=== PATIENT | female | born 1970 | race Caucasian/White ===

== ENCOUNTER 2017-10-11 11:12 | Emergency (ER) | payer BC ==
--- NOTE | 2017-10-11 11:56 | EDM.PDOC ---
ED HPI GENERAL MEDICAL PROBLEM - General Chief Complaint: Neurological Problem Stated Complaint: VERTIGO Time Seen by Provider: 10/11/17 11:35 Source of Information: Reports: Patient, Family History Limitations: Reports: No Limitations - History of Present Illness INITIAL COMMENTS - FREE TEXT/NARRATIVE: 47-year-old female with a chronic history of recurrent vertigo is very concerned because the episodes are escalating, she is currently struggling with a 3 day episode of vertigo and its the second episode this month. No fevers or chills but she has nasal congestion and fullness. Denies vomiting. No chest pain or palpitations. No headache. Onset: Gradual (Over the past 3 days) Severity: Moderate Worsens with: Reports: Movement Associated Symptoms: Reports: Malaise, Nausea/Vomiting (Nausea but no vomiting) , Other (Nasal congestion). Denies: Headaches, Weakness - Related Data Allergies Allergy/AdvReac Type Severity Reaction Status Date / Time No Known Allergies Allergy Verified 10/11/17 11:26 Home Meds: Home Meds Levonorgestrel [Mirena] 10/11/17 [History] Past Medical History - Past Surgical History HEENT Surgical History: Reports: Eye Surgery GI Surgical History: Reports: Cholecystectomy Social & Family History - Tobacco Use Smoking Status *Q: Never Smoker ED ROS GENERAL - Review of Systems Review Of Systems: See Below Constitutional: Reports: Malaise. Denies: Fever, Chills HEENT: Reports: Ear Pain (She has a fullness in the left ear, no significant pain or difficulty hearing), Rhinitis, Sinus Problem Respiratory: Denies: Shortness of Breath, Cough Cardiovascular: Denies: Chest Pain, Palpitations GI/Abdominal: Reports: Nausea. Denies: Vomiting Skin: Reports: No Symptoms Neurological: Reports: Dizziness, Difficulty Walking ED EXAM, NEURO - Physical Exam Exam: See Below Exam Limited By: No Limitations General Appearance: Alert, No Apparent Distress, Anxious Eye Exam: Right Eye: Other (Slight nystagmus when looking to the right) Ears: Normal TMs Throat/Mouth: Normal Inspection Head Exam: Atraumatic Neck: Normal Inspection Respiratory/Chest: No Respiratory Distress, Lungs Clear Cardiovascular: Regular Rate, Rhythm. No: Extra Beats Neurological: Alert, No Motor/Sensory Deficits, Oriented x 3 Extremities: No: Pedal Edema Psychiatric: Anxious Skin Exam: Warm, Dry Course - Vital Signs Last Recorded V/S: Last Vital Signs Temp 95.4 F 10/11/17 11:33 Pulse 75 10/11/17 11:33 Resp 14 10/11/17 11:33 BP 149/84 H 10/11/17 11:33 Pulse Ox 98 10/11/17 11:33 - Orders/Labs/Meds Orders: Active Orders 24 hr Category Date Time Status Head wo Cont [CT] Stat Exams 10/11/17 12:22 Taken Labs: Laboratory Tests 10/11/17 10/11/17 Range/Units 12:22 12:22 WBC 8.8 (4.5-11.0) K/uL RBC 4.69 (3.30-5.50) M/uL Hgb 14.4 (12.0-15.0) g/dL Hct 42.0 (36.0-48.0) % MCV 90 (80-98) fL MCH 31 (27-31) pg MCHC 34 (32-36) % Plt Count 280 (150-400) K/uL Neut % (Auto) 82 H (36-66) % Lymph % (Auto) 11 L (24-44) % [place] % (Auto) 6 (2-6) % Eos % (Auto) 1 L (2-4) % Baso % (Auto) 1 (0-1) % Sodium 140 (140-148) mmol/L Potassium 4.3 (3.6-5.2) mmol/L Chloride 105 (100-108) mmol/L Carbon Dioxide 25 (21-32) mmol/L Anion Gap 10.2 (5.0-14.0) mmol/L BUN 13 (7-18) mg/dL Creatinine 0.7 (0.6-1.0) mg/dL Est Cr Clr Drug Dosing 95.01 mL/min Estimated GFR (MDRD) > 60 (>60) Glucose 103 (74-106) mg/dL Calcium 9.1 (8.5-10.1) mg/dL Total Bilirubin 0.5 (0.2-1.0) mg/dL AST 18 (15-37) U/L ALT 36 (12-78) U/L Alkaline Phosphatase 87 (46-116) U/L Total Protein 7.1 (6.4-8.2) g/dL Albumin 3.8 (3.4-5.0) g/dL Globulin 3.3 (2.3-3.5) g/dL Albumin/Globulin Ratio 1.2 (1.2-2.2) TSH, Ultra Sensitive 1.346 (0.358-3.740) uIU/mL Meds: Medications Discontinued Medications Generic Name Dose Route Start Last Admin Trade Name Jade PRN Reason Stop Dose Admin Acetaminophen 1,000 mg 10/11/17 12:22 10/11/17 12:25 Tylenol Extra Strength PO 10/11/17 12:23 1,000 mg ONETIME ONE Administration Meclizine HCl 25 mg 10/11/17 11:58 10/11/17 12:05 Antivert PO 10/11/17 11:59 25 mg ONETIME ONE Administration Ondansetron HCl 4 mg 10/11/17 11:57 10/11/17 12:04 Zofran Odt PO 10/11/17 11:58 4 mg ONETIME ONE Administration - Re-Assessments/Exams Free Text/Narrative Re-Assessment/Exam: 10/11/17 12:00 An Kendra maneuver was done focusing on the right side, it was unsuccessful in fact she felt a little worse. The right side was focused on as the patient had increased symptoms with hyperextending the neck looking to the right. 10/11/17 12:01 Patient was given 4 mg of sublingual Zofran and 25 mg of meclizine. 10/11/17 13:09 Patient continued to be symptomatic, a CBC, CMP, head CT and TSH were obtained. She was given 1000 mg of acetaminophen for a headache. The headache improved but her nausea persisted. CBC CMP and TSH were entirely normal. 10/11/17 13:[address] was also negative. Patient continued to feel nauseous and dizzy, she'll be placed on 60 mg of prednisone daily for 5 consecutive days and given meclizine. Also wrote a note to be off work for the next couple of days and she should recheck next week if not improving satisfactorily. Departure - Departure Time of Disposition: 13:58 Disposition: Home, Self-Care 01 Condition: Good Clinical Impression: Vertigo Eustachian tube dysfunction Qualifiers: Laterality: unspecified laterality Qualified Code(s): H69.80 - Other specified disorders of Eustachian tube, unspecified ear - Discharge Information Instructions: How to Perform the Kendra Maneuver, Benign Positional Vertigo Referrals: Doreen Kincaid PA [Primary Care Provider] - Forms: ED Department Discharge Care Plan Goals: Take 6 pills of prednisone with your first meal for 5 consecutive days. Get rest , fluids, and increase activity as tolerated. Meclizine as directed may help with dizziness or vertigo. Return anytime if worsening such as fever or worsening symptoms, otherwise recheck in 4-6 days with your primary provider if not improving satisfactorily. - My Orders Last 24 Hours: My Active Orders 10/11/17 12:22 Head wo Cont [CT] Stat - Assessment/Plan Last 24 Hours: My Active Orders 10/11/17 12:22 Head wo Cont [CT] Stat
[2017-10-11] MEDS ORDERED: Ondansetron 4 MG Tab.DIS PO ONE (11:57)
[2017-10-11] MEDS ORDERED: Meclizine 25 MG Tab PO ONE (11:58)
[2017-10-11] MEDS ORDERED: Acetaminophen 500 MG Tab PO ONE (12:22)
== END 2017-10-11 13:58 | disposition home or self-care (01) ==
LOC: JP.ED 11:12
DX: H69.80 Other specified disorders of Eustachian tube, unspecified ear (principal); R42 Dizziness and giddiness
CPT/HCPCS: 36415; 70450; 80053; 84443; 85025; 99284; A9270

== ENCOUNTER 2018-12-15 09:31 | Emergency (ER) | payer BC ==
[2018-12-15] MEDS ORDERED: Ondansetron 4 MG Tab.DIS PO ONE (11:01)
[2018-12-15] MEDS ORDERED: Ketorolac 60 MG/2 ML SDV IM ONE (11:01)
--- NOTE | 2018-12-15 11:05 | EDM.PDOC ---
ED HPI GENERAL MEDICAL PROBLEM - General Chief Complaint: Flank Pain Stated Complaint: RIGHT STOMACH PAIN Time Seen by Provider: 12/15/18 10:54 Source of Information: Reports: Patient, Family, RN Notes Reviewed History Limitations: Reports: No Limitations - History of Present Illness INITIAL COMMENTS - FREE TEXT/NARRATIVE: 48-year-old female presents emergency department today sudden onset right flank pain she states initially started in her abdomen and then radiated to her back she has had nausea and vomiting with this no fevers normal bowel movement still passing gas Right Abdomen Pain Score (Numeric/FACES): 6 - Related Data Allergies Allergy/AdvReac Type Severity Reaction Status Date / Time No Known Allergies Allergy Verified 12/15/18 10:47 Home Meds: Home Meds Levonorgestrel [Mirena] 1 ASDIRECTED 10/11/17 [History] Ketorolac [Toradol] 10 mg PO TID PRN #20 tab 12/15/18 [Rx] Tamsulosin [Flomax] 0.4 mg PO DAILY #10 cap.er 12/15/18 [Rx] Past Medical History - Past Surgical History Head Surgeries/Procedures: Reports: None HEENT Surgical History: Reports: Eye Surgery GI Surgical History: Reports: Cholecystectomy Dermatological Surgical History: Reports: None Social & Family History - Tobacco Use Smoking Status *Q: Never Smoker Second Hand Smoke Exposure: No - Caffeine Use Caffeine Use: Reports: Coffee, Soda, Tea - Recreational Drug Use Recreational Drug Use: No ED ROS GENERAL - Review of Systems Review Of Systems: See Below Constitutional: Reports: No Symptoms Respiratory: Reports: No Symptoms Cardiovascular: Reports: No Symptoms GI/Abdominal: Reports: Abdominal Pain, Flatus, Nausea, Vomiting : Reports: Flank Pain. Denies: Hematuria ED EXAM, GI/ABD - Physical Exam Exam: See Below Exam Limited By: No Limitations General Appearance: Alert, WD/WN, No Apparent Distress Respiratory/Chest: No Respiratory Distress, Lungs Clear, Normal Breath Sounds, No Accessory Muscle Use, Chest Non-Tender Cardiovascular: Regular Rate, Rhythm, No Murmur GI/Abdominal Exam: Soft, Tender (right flank) Course - Vital Signs Last Recorded V/S: Last Vital Signs Temp 95.6 F 12/15/18 09:42 Pulse 66 12/15/18 11:44 Resp 16 12/15/18 09:42 BP 151/85 H 12/15/18 11:44 Pulse Ox 97 12/15/18 11:44 - Orders/Labs/Meds Labs: Laboratory Tests 12/15/18 12/15/18 12/15/18 Range/Units 11:11 11:13 11:13 WBC 11.5 H (4.5-11.0) K/uL RBC 4.60 (3.30-5.50) M/uL Hgb 14.1 (12.0-15.0) g/dL Hct 41.6 (36.0-48.0) % MCV 90 (80-98) fL MCH 31 (27-31) pg MCHC 34 (32-36) % Plt Count 310 (150-400) K/uL Neut % (Auto) 86 H (36-66) % Lymph % (Auto) 8 L (24-44) % [place] % (Auto) 5 (2-6) % Eos % (Auto) 0 L (2-4) % Baso % (Auto) 0 (0-1) % Sodium 138 L (140-148) mmol/L Potassium 4.4 (3.6-5.2) mmol/L Chloride 102 (100-108) mmol/L Carbon Dioxide 27 (21-32) mmol/L Anion Gap 13.4 (5.0-14.0) mmol/L BUN 16 (7-18) mg/dL Creatinine 0.8 (0.6-1.0) mg/dL Est Cr Clr Drug Dosing 82.26 mL/min Estimated GFR (MDRD) > 60 (>60) Glucose 128 H (74-106) mg/dL Calcium 9.8 (8.5-10.1) mg/dL Total Bilirubin 0.3 (0.2-1.0) mg/dL AST 26 (15-37) U/L ALT 58 (12-78) U/L Alkaline Phosphatase 83 (46-116) U/L Total Protein 7.1 (6.4-8.2) g/dL Albumin 3.7 (3.4-5.0) g/dL Globulin 3.4 (2.3-3.5) g/dL Albumin/Globulin Ratio 1.1 L (1.2-2.2) Urine Color Yellow Urine Appearance Slightly cloudy Urine pH 7.0 (4.5-8.0) Ur Specific [place] 1.015 (1.008-1.030) Urine Protein Negative (NEGATIVE) mg/dL Urine Glucose (UA) Normal (NEGATIVE) mg/dL Urine Ketones Negative (NEGATIVE) mg/dL Urine Occult Blood Large (NEGATIVE) Urine Nitrite Negative (NEGATIVE) Urine Bilirubin Negative (NEGATIVE) Urine Urobilinogen Normal (NORMAL) mg/dL Ur Leukocyte Esterase Negative (NEGATIVE) Urine RBC 10-20 H (0-5) Urine WBC Not seen (0-5) Ur Epithelial Cells Few Amorphous Sediment Not seen Urine Bacteria Few Urine Mucus Rare Meds: Medications Discontinued Medications Generic Name Dose Route Start Last Admin Trade Name Freq PRN Reason Stop Dose Admin Ketorolac Tromethamine 60 mg 12/15/18 11:01 12/15/18 11:08 Toradol IM 12/15/18 11:02 60 mg ONETIME ONE Administration Ondansetron HCl 4 mg 12/15/18 11:01 12/15/18 11:08 Zofran Odt PO 12/15/18 11:02 4 mg ONETIME ONE Administration Departure - Departure Time of Disposition: 12:50 Disposition: Home, Self-Care 01 Condition: Fair Clinical Impression: Nephrolithiasis - Discharge Information Prescriptions: Ketorolac [Toradol] 10 mg PO TID PRN #20 tab PRN Reason: Pain Tamsulosin [Flomax] 0.4 mg PO DAILY #10 cap.er Instructions: Kidney Stones, [id number] Referrals: PCP,None [Primary Care Provider] - Forms: ED Department Discharge Additional Instructions: Use ketorolac as needed for pain control, take the Flomax to help pass the stone , use your Zofran for nausea and vomiting symptoms, follow-up with your primary care provider in the next 3-5 days if not better, he medications have been faxed to [facility] - Assessment/Plan Plan: Assessment Acuity = acute Site and laterality = right sided nephrolithiasis 4 mm Etiology = unknown etiology Manifestations = nausea, vomiting, flank pain Location of injury = Home Lab values = CBC, CMP unremarkable urinalysis reveals 10-[address] scan describes a stone above Plan Good relief with Toradol provided in the ED prescription written for ketorolac 10 mg by mouth 3 times a day when necessary total #20 also Flomax 0.4 mg once a day total #10 follow-up primary care in 3-5 days if not better This note was dictated using [employer] voice recognition software please call with any questions on syntax or grammar.
--- NOTE | 2018-12-15 12:34 | CRLCT ---
HISTORY: Right flank pain. TECHNIQUE: Noncontrast CT of the abdomen and pelvis. COMPARISON: No prior. FINDINGS: Prior cholecystectomy. There are a few low-density liver lesions within the medial segment of the left hepatic lobe which are incompletely characterized but could represent cysts. Area of superior splenic parenchymal volume loss likely related to remote insult. Adrenal glands normal. No focal pancreatic abnormality. - On the right, there is mild moderate hydronephrosis and hydroureter secondary to an approximately 4 mm calculus within the distal ureter. No other right-sided urinary calculus. No left-sided hydronephrosis. No left ureteral calculus. On the right, there is a fluid density lesion exophytic off the superior pole left kidney which measures approximately 1.5 cm in size, likely representing a cyst. - No small bowel obstruction. No appendicitis. Colonic diverticulosis without acute diverticulitis. IUD. No fluid collection or free air. No abdominal aortic aneurysm. No adenopathy. - Mild degenerative changes of the spine. No acute fractures. - There are a multiple pulmonary nodules within the lung bases. For example, right lower lobe nodule 6 mm nodule image 2 of series 2. 6 mm right lower lobe nodule image 1 of series 2. Left lower lobe pulmonary nodule measures 5 mm in size on image 3 of series 2. IMPRESSION: 1. On the right, there is mild to moderate hydronephrosis along with hydroureter secondary to a 4 mm distal ureteral calculus. 2. Probable cyst at the superior pole of the right kidney. 3. Prior cholecystectomy. 4. A few low-density lesions within the medial segment left hepatic lobe which are incompletely characterized but may represent cysts. 5. Area of parenchymal volume loss involving the superior spleen compatible with remote insult. 6. Multiple pulmonary nodules within the lung bases. Consider obtaining a non urgent CT of the chest to evaluate the remainder of the lung parenchyma. Dictated by Doc Cowart MD @ 12/15/2018 12:31:54 PM Please note that all CT scans at this facility use dose modulation, iterative reconstruction, and/or weight-based dosing when appropriate to reduce radiation dose to as low as reasonably achievable. Dictated by: Doc Cowart MD @ 12/15/2018 12:32:00 (Electronically Signed)
== END 2018-12-15 13:04 | disposition home or self-care (01) ==
LOC: JP.ED 09:31
DX: N13.2 Hydronephrosis with renal and ureteral calculous obstruction (principal); Z79.899 Other long term (current) drug therapy
CPT/HCPCS: 36415; 74176; 80053; 81001; 85025; 96372; 99284; A9270; J1885

== ENCOUNTER 2020-09-17 13:16 | Emergency (ER) | payer BC, OTHER ==
--- NOTE | 2020-09-17 13:48 | EDM.PDOC ---
ED HPI GENERAL MEDICAL PROBLEM - General Chief Complaint: Cardiovascular Problem Stated Complaint: HEART RACING/COUGH Time Seen by Provider: 09/17/20 13:40 Source of Information: Reports: Patient, Old Records, RN History Limitations: Reports: No Limitations - History of Present Illness INITIAL COMMENTS - FREE TEXT/NARRATIVE: 50 yo female is here with rapid HR, tremors, and mild chest pressure. Sx's for at least a week. No hx of the same. Is not on any medications. Denies recent caffeine ingestion. No cardiac hx. Had gestational DM with 2 pregnancies. 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: Other (see below) (none) - Related Data Allergies Allergy/AdvReac Type Severity Reaction Status Date / Time No Known Allergies Allergy Verified 09/17/20 13:34 Home Meds: Home Meds Cholecalciferol (Vitamin D3) [Vitamin D] 1 tab PO BEDTIME 09/17/20 [History] Melatonin/Pyridoxine HCl (B6) [Melatonin 3 mg Tablet] 6 mg PO BEDTIME 09/17/20 [History] Verapamil HCl [Verapamil Sr] 180 mg PO DAILY #30 cap24h.pel 09/17/20 [Rx] metFORMIN HCl [Metformin HCl ER] 1,000 mg PO BID #120 tab.er.24h 09/17/20 [Rx] Past Medical History HEENT History: Reports: None Gastrointestinal History: Reports: None - Past Surgical History Head Surgeries/Procedures: Reports: None HEENT Surgical History: Reports: Eye Surgery GI Surgical History: Reports: Cholecystectomy Dermatological Surgical History: Reports: None Social & Family History - Tobacco Use Tobacco Use Status *Q: Former Tobacco User Used Tobacco, but Quit: Yes Month/Year Tobacco Last Used: 12 - Caffeine Use Caffeine Use: Reports: Coffee, Soda - Recreational Drug Use Recreational Drug Use: No ED ROS GENERAL - Review of Systems Review Of Systems: See Below Constitutional: Reports: No Symptoms HEENT: Reports: No Symptoms Respiratory: Reports: No Symptoms. Denies: Pleuritic Chest Pain Cardiovascular: Reports: Chest Pain, Palpitations. Denies: Dyspnea on Exertion, Edema Endocrine: Reports: No Symptoms GI/Abdominal: Reports: No Symptoms : Reports: No Symptoms Musculoskeletal: Reports: No Symptoms Skin: Reports: No Symptoms Neurological: Reports: No Symptoms Psychiatric: Reports: No Symptoms ED EXAM, GENERAL - Physical Exam Exam: See Below Exam Limited By: No Limitations General Appearance: Alert, WD/WN, No Apparent Distress Eye Exam: Bilateral Eye: EOMI, Normal Inspection, PERRL Ears: Normal External Exam, Normal Canal, Hearing Grossly Normal, Normal TMs Ear Exam: Bilateral Ear: Auricle Normal, Canal Normal, TM normal Nose: Normal Inspection, Normal Mucosa, No Blood Throat/Mouth: Normal Inspection, Normal Lips, Normal Oropharynx, Normal Voice, No Airway Compromise Head: Atraumatic, Normocephalic Neck: Normal Inspection Respiratory/Chest: No Respiratory Distress, Lungs Clear, Normal Breath Sounds, N o Accessory Muscle Use Cardiovascular: Regular Rate, Rhythm, No Edema, Tachycardia GI/Abdominal: Soft, Non-Tender, No Distention. No: Distended, Tender Back Exam: Normal Inspection. No: CVA Tenderness (R), CVA Tenderness (L) Extremities: Normal Inspection, Normal Range of Motion, Non-Tender, No Pedal Edema Neurological: Alert, Oriented, CN II-XII Intact, Normal Cognition, No Motor/Sensory Deficits Psychiatric: Normal Affect, Normal Mood Skin Exam: Warm, Dry, Intact, Normal Color, No Rash #1 Interpretation EKG Date: 09/17/20 Time: 13:40 Rhythm: NSR Rate (Beats/Min): 106 [place]: Normal P-Wave: Present QRS: Normal ST-T: Normal QT: Normal Comparison: NA - No Prior EKG Course - Vital Signs Last Recorded V/S: Last Vital Signs Temp 38.1 C 09/17/20 13:36 Pulse 84 09/17/20 15:42 Resp 16 09/17/20 13:36 BP 153/97 H 09/17/20 15:42 Pulse Ox 95 09/17/20 13:36 - Orders/Labs/Meds Orders: Active Orders 24 hr Category Date Time Status Cardiac Monitoring [RC] .As Directed Care 09/17/20 13:21 Active BASIC METABOLIC PANEL,BMP [CHEM] Stat Lab 09/17/20 13:54 Results TROPONIN I [CHEM] Stat Lab 09/17/20 13:54 Results Nitroglycerin [Nitrostat] Med 09/17/20 13:52 Active 0.4 mg SL Q5M PRN Sodium Chloride 0.9% [Saline Flush] Med 09/17/20 13:52 Active 10 ml FLUSH ASDIRECTED PRN metFORMIN [Glucophage] Med 09/17/20 17:00 Active 1,000 mg PO WITHDINNER Saline Lock Insert [OM.PC] Routine Oth 09/17/20 13:52 Ordered Medication Orders Metformin HCl (Metformin 500 Mg Tab) 1,000 mg PO WITHDINNER SUKUMAR Last Admin: 09/17/20 15:42 Dose: 1,000 mg Documented by: NORTH Nitroglycerin (Nitroglycerin 0.4 Mg Tab.Sl) 0.4 mg SL Q5M PRN PRN Reason: Chest Pain Sodium Chloride (Sodium Chloride 0.9% 10 Ml Syringe) 10 ml FLUSH ASDIRECTED PRN PRN Reason: Keep Vein Open Last Admin: 09/17/20 14:04 Dose: 10 ml Documented by: NORTH Labs: Laboratory Tests 09/17/20 09/17/20 09/17/20 Range/Units 13:54 13:54 13:54 WBC 7.1 (4.5-11.0) K/uL RBC 4.65 (3.30-5.50) M/uL Hgb 13.9 (12.0-15.0) g/dL Hct 41.6 (36.0-48.0) % MCV 90 (80-98) fL MCH 30 (27-31) pg MCHC 33 (32-36) % Plt Count 346 (150-400) K/uL D-Dimer, Quantitative (0.0-500.0) ng/mL Sodium 140 (140-148) mmol/L Potassium 3.7 (3.6-5.2) mmol/L Carbon Dioxide 25 (21-32) mmol/L BUN 16 (7-18) mg/dL Creatinine 0.9 (0.6-1.0) mg/dL Est Cr Clr Drug Dosing 71.56 mL/min Estimated GFR (MDRD) > 60 (>60) Glucose 199 H (74-106) mg/dL Calcium 9.7 (8.5-10.1) mg/dL Troponin I < 0.017 (0.000-0.056) ng/mL TSH, Ultra Sensitive 1.573 (0.358-3.740) uIU/mL Urine Color (YELLOW) Urine Appearance (CLEAR) Urine pH (5.0-8.0) Ur Specific [place] (1.008-1.030) Urine Protein (NEGATIVE) mg/dL Urine Glucose (UA) (NEGATIVE) mg/dL Urine Ketones (NEGATIVE) mg/dL Urine Occult Blood (NEGATIVE) Urine Nitrite (NEGATIVE) Urine Bilirubin (NEGATIVE) Urine Urobilinogen (0.2-1.0) EU/dL Ur Leukocyte Esterase (NEGATIVE) Urine RBC (0-5) Urine WBC (0-5) Ur Epithelial Cells Amorphous Sediment Urine Bacteria Urine Mucus 09/17/20 09/17/20 Range/Units 13:58 15:29 WBC (4.5-11.0) K/uL RBC (3.30-5.50) M/uL Hgb (12.0-15.0) g/dL Hct (36.0-48.0) % MCV (80-98) fL MCH (27-31) pg MCHC (32-36) % Plt Count (150-400) K/uL D-Dimer, Quantitative 219.28 (0.0-500.0) ng/mL Sodium (140-148) mmol/L Potassium (3.6-5.2) mmol/L Carbon Dioxide (21-32) mmol/L BUN (7-18) mg/dL Creatinine (0.6-1.0) mg/dL Est Cr Clr Drug Dosing mL/min Estimated GFR (MDRD) (>60) Glucose (74-106) mg/dL Calcium (8.5-10.1) mg/dL Troponin I (0.000-0.056) ng/mL TSH, Ultra Sensitive (0.358-3.740) uIU/mL Urine Color Yellow (YELLOW) Urine Appearance Clear (CLEAR) Urine pH 6.0 (5.0-8.0) Ur Specific [place] 1.025 (1.008-1.030) Urine Protein Negative (NEGATIVE) mg/dL Urine Glucose (UA) Negative (NEGATIVE) mg/dL Urine Ketones Negative (NEGATIVE) mg/dL Urine Occult Blood Negative (NEGATIVE) Urine Nitrite Negative (NEGATIVE) Urine Bilirubin Negative (NEGATIVE) Urine Urobilinogen 0.2 (0.2-1.0) EU/dL Ur Leukocyte Esterase Negative (NEGATIVE) Urine RBC 0-5 (0-5) Urine WBC 0-5 (0-5) Ur Epithelial Cells Occasional Amorphous Sediment Occasional Urine Bacteria Occasional Urine Mucus Rare Meds: Medications Generic Name Dose Route Start Last Admin Trade Name Freq PRN Reason Stop Dose Admin Metformin HCl 1,000 mg 09/17/20 17:00 09/17/20 15:42 Metformin 500 Mg Tab PO 1,000 mg WITHDINNER SUKUMAR Administration Nitroglycerin 0.4 mg 09/17/20 13:52 Nitroglycerin 0.4 Mg Tab.Sl SL Q5M PRN Chest Pain Sodium Chloride 10 ml 09/17/20 13:52 09/17/20 14:04 Sodium Chloride 0.9% 10 Ml Syringe FLUSH 10 ml ASDIRECTED PRN Administration Keep Vein Open Discontinued Medications Generic Name Dose Route Start Last Admin Trade Name Freq PRN Reason Stop Dose Admin Aspirin 324 mg 09/17/20 13:51 09/17/20 14:04 Aspirin 81 Mg Tab.Chew PO 09/17/20 13:52 324 mg ONETIME ONE Administration Verapamil HCl 180 mg 09/17/20 15:29 09/17/20 15:42 Verapamil 180 Mg Tab.Er PO 09/17/20 15:30 180 mg ONETIME ONE Administration - Re-Assessments/Exams Free Text/Narrative Re-Assessment/Exam: 09/17/20 14:12 Sx's gone in the ER without any interventions. Free Text/Narrative Re-Assessment/Exam: 09/17/20 16:26 Pain free with ambulation in the ER around the loop Departure - Departure Time of Disposition: 16:26 Disposition: Home, Self-Care 01 Condition: Fair Clinical Impression: Elevated blood sugar HTN (hypertension) Qualifiers: Hypertension type: unspecified Qualified Code(s): I10 - Essential (primary) hypertension Prescriptions: metFORMIN HCl [Metformin HCl ER] 1,000 mg PO BID #120 tab.er.24h Verapamil HCl [Verapamil Sr] 180 mg PO DAILY #30 cap24h.pel Referrals: PCP,None [Primary Care Provider] - Forms: ED Department Discharge Additional Instructions: Avoid starchy foods. Avoid salt. mail delivery supervisor your prescriptions from [facility] and take the metformin and verapamil as directed. Recheck with a provider of your choice in the next week or so. Sepsis Event Note (ED) - Evaluation Sepsis Screening Result: No Definite Risk - Focused Exam Vital Signs: Vital Signs Temp Pulse Resp BP Pulse Ox 09/17/20 15:42 84 153/97 H 09/17/20 13:36 38.1 C 110 H 16 170/103 H 95 09/17/20 13:33 38.1 C 110 H 16 170/103 H 95 - My Orders Last 24 Hours: My Active Orders 09/17/20 13:21 Cardiac Monitoring [RC] .As Directed 09/17/20 13:52 Nitroglycerin [Nitrostat] 0.4 mg SL Q5M PRN Sodium Chloride 0.9% [Saline Flush] 10 ml FLUSH ASDIRECTED PRN Saline Lock Insert [OM.PC] Routine 09/17/20 13:54 BASIC METABOLIC PANEL,BMP [CHEM] Stat TROPONIN I [CHEM] Stat 09/17/20 17:00 metFORMIN [Glucophage] 1,000 mg PO WITHDINNER - Assessment/Plan Last 24 Hours: My Active Orders 09/17/20 13:21 Cardiac Monitoring [RC] .As Directed 09/17/20 13:52 Nitroglycerin [Nitrostat] 0.4 mg SL Q5M PRN Sodium Chloride 0.9% [Saline Flush] 10 ml FLUSH ASDIRECTED PRN Saline Lock Insert [OM.PC] Routine 09/17/20 13:54 BASIC METABOLIC PANEL,BMP [CHEM] Stat TROPONIN I [CHEM] Stat 09/17/20 17:00 metFORMIN [Glucophage] 1,000 mg PO WITHDINNER
[2020-09-17] MEDS ORDERED: Nitroglycerin 0.4 MG Tab.SL SL PRN (13:52)
[2020-09-17] MEDS: Sodium Chloride 0.9% 10 ML Syringe FLUSH PRN (14:04)
[2020-09-17] MEDS: Aspirin 81 MG Tab.Chew PO ONE (14:04)
[2020-09-17] MEDS: metFORMIN 500 MG Tab PO SCH (15:42)
[2020-09-17] MEDS: Verapamil 180 MG Tab.ER PO ONE (15:42)
== END 2020-09-17 16:44 | disposition home or self-care (01) ==
LOC: JP.ED 13:16
DX: I10 Essential (primary) hypertension (principal); R73.9 Hyperglycemia, unspecified; Z87.891 Personal history of nicotine dependence; Z79.899 Other long term (current) drug therapy
CPT/HCPCS: 36415; 80048; 81001; 84443; 84484; 85027; 85379; 99285; A9270